=== PATIENT | female | born 1980 ===

== ENCOUNTER 2020-12-24 23:37 | Emergency (ER) | payer MEDICAID, OTHER ==
--- NOTE | 2020-12-24 23:46 | PCM.EKG ---
#1 Interpretation EKG Date: 12/24/20 Time: 23:39 Rhythm: NSR Rate (Beats/Min): 98 Butler: LAD-Left Butler Deviation P-Wave: Present QRS: Normal ST-T: Normal QT: Normal ME/PQ Interval: 152 Comparison: NA - No Prior EKG EKG Interpretation Comments: Sinus Rhythm
--- NOTE | 2020-12-25 00:43 | CR ---
INDICATION: Shortness of breath. Seven months . TECHNIQUE: Chest 1 view. COMPARISON: None. FINDINGS: There is a subtle opacity in the left lower lung which may be infectious or inflammatory. Mild right basilar atelectasis. No pleural effusion or pneumothorax. Normal heart size and pulmonary vascularity. The bones are unremarkable. IMPRESSION: Subtle opacity in the left lower lung may be infectious or inflammatory. Dictated by Michelle Taveras MD @ 12/25/2020 12:42:06 AM (Electronically Signed)
[2020-12-25 00:55] LABS: CORONAVIRUS COVID-19 NAA POSITIVE (NEGATIVE); INFLUENZA A NAA NEGATIVE (NEGATIVE); INFLUENZA B NAA NEGATIVE (NEGATIVE); RESPIRATORY SYNCYTIAL VIR NAA NEGATIVE (NEGATIVE)
--- NOTE | 2020-12-25 02:00 | EDM.PDOC ---
ED HPI GENERAL MEDICAL PROBLEM - General Chief Complaint: General Stated Complaint: DIFFICULTY BREATHING Time Seen by Provider: 12/24/20 23:50 - History of Present Illness INITIAL COMMENTS - FREE TEXT/NARRATIVE: *All conversations had with certified court interpreter CHIEF COMPLAINT(S): Cough HISTORY OF PRESENT ILLNESS: This is a 40-year-old woman who is approximately 7 months who comes to the emergency department with a chief complaint of cough. The patient states that for the last 4 days she has been experiencing shortness of breath and nonproductive cough. She states that she is starting to experience bilateral rib pain when she has any cough. She denies any fevers or chills but states that she does have some congestion and runny nose. She denies any recent travel, recent surgery, prior history of DVT or PE. She states that she is not vaccinated. She states that nobody else is having similar symptoms. She currently rates her pain as 7 out of 10 and sharp in her bilateral ribs. This is exacerbated by coughing and deep breathing. She has not yet tried anything for pain. There are no relieving factors. REVIEW OF SYSTEMS: Constitutional: Denies fever, chills. Eyes: Denies eye pain Ears, Nose, Mouth, & Throat: Denies earache Cardiovascular: Positive for posttussive bilateral chest pain. Respiratory: Positive for shortness of breath and nonproductive cough Gastrointestinal: Denies Nausea, vomiting, diarrhea, hematochezia. Genitourinary: Denies hematuria Skin:Denies a rash MSK: Denies joint pain Neurological: Denies blurred vision Psychiatric: Denies depression PAST MEDICAL HISTORY: As per history of present illness and as reviewed below otherwise noncontributory. SURGICAL HISTORY: As per history of present illness and as reviewed below otherwise noncontributory. SOCIAL HISTORY: As per history of present illness and as reviewed below otherwise noncontributory. FAMILY HISTORY: As per history of present illness and as reviewed below otherwise noncontributory. EXAMINATION OF ORGAN SYSTEMS/BODY AREAS: Constitutional: Blood pressure is 140/90, heart rate 100, respiratory rate 19 with an oxygen saturation of 99% on room air. Temperature 36.9 General: Young woman who does not appear to be in acute distress Psychiatric: Appropriate mood and affect. Eyes: No scleral icterus or conjunctival erythema ENMT: Moist mucous membranes. No pharyngeal erythema Cardiovascular: Regular, rate, and rhythm. No gallops, murmurs, or rubs. Bilateral upper extremity pulses symmetric and intact. No peripheral edema. No JVD. Respiratory: Lungs clear to auscultation bilaterally. No wheezes, rales, or rhonchi. Gastrointestinal: Soft, non-tender, non-distended. Normoactive bowel sounds Genitourinary: No suprapubic tenderness Musculoskeletal: Normal range of motion. Skin: No lesions or abrasions. Neurological: Alert, GCS 15 MEDICAL DECISION MAKING AND COURSE IN THE ED WITH INTERPRETATION/REVIEW OF DIAGNOSTIC STUDIES: This is a 40-year-old who is approximately 7 months who comes to the emergency department with cough, runny nose, congestion and posttussive chest pain. At this time we did obtain a screening EKG which was unremarkable. Obtain a chest x-ray and Covid and influenza and RSV swabs. The patient's vitals are currently normal. I do not believe any further work-up is indicated. Patient was amenable to this plan. DDx: COVID-19, influenza, pneumonia Laboratory: Covid is positive. Influenza and RSV negative. The radiological images were viewed by myself along with reading the report from the radiologist. Chest x-ray reveals a subtle opacity in the left lower lung which may be infectious or inflammatory. After lab and imaging I did discuss the results with the patient. At this time although there is evidence of an opacity left lower lung given the duration of the patient's symptoms I do believe this is secondary to COVID-19 pneumonia. I did discuss Regeneron and symptomatic treatment at home. Patient was amenable to discharge at this time and had no further questions. She was given strict return precautions and appropriate Azerbaijani discharge instructions were provided to the patient. DISPOSITION: The patient was discharged home in stable condition. The patient will follow up with primary care physician after isolation. CONDITION: Fair PROCEDURES: None FINAL IMPRESSION(S)/DIAGNOSES: 1. Acute COVID-19 pneumonia Matthew Ramirez M.D. ribs Pain Score (Numeric/FACES): 7 - Related Data Allergies Allergy/AdvReac Type Severity Reaction Status Date / Time No Known Allergies Allergy Verified 12/24/20 23:55 Home Meds: Home Meds . [No Known Home Meds] 12/24/20 [History] Past Medical History - Past Health History Medical/Surgical History: Denies Medical/Surgical History Social & Family History - Family History Family Medical History: No Pertinent Family History - Tobacco Use Tobacco Use Status *Q: Never Tobacco User - Recreational Drug Use Recreational Drug Use: No ED ROS GENERAL - Review of Systems Review Of Systems: See Below ED EXAM, GENERAL - Physical Exam Exam: See Below Course - Vital Signs Last Recorded V/S: Last Vital Signs Temp 36.9 C 12/24/20 23:48 Pulse 100 12/25/20 02:11 Resp 20 12/25/20 02:11 BP 128/75 12/25/20 02:11 Pulse Ox 99 12/25/20 02:11 - Orders/Labs/Meds Labs: Laboratory Tests 12/24/20 Range/Units 23:49 Influenza Type A RNA NEGATIVE (NEGATIVE) RSV RNA (INAAT) NEGATIVE (NEGATIVE) Influenza Type B RNA NEGATIVE (NEGATIVE) SARS-CoV-2 RNA (WANEDR) POSITIVE H (NEGATIVE) Departure - Departure Time of Disposition: 00:00 Disposition: Home, Self-Care 01 Condition: Fair Clinical Impression: COVID-19 - Discharge Information *PRESCRIPTION DRUG MONITORING PROGRAM REVIEWED*: No *COPY OF PRESCRIPTION DRUG MONITORING REPORT IN PATIENT LATOSHA: No Referrals: PCP,None [Primary Care Provider] - Forms: ED Department Discharge Additional Instructions: *Appropriate dominican discharge instructions were printed/scanned into chart and provided to the patient. You should take acetaminophen 500-1000 mg every 6 hours as needed for fever and muscle aches. Please drink plenty of fluids and get plenty of rest over the next several days. We would recommend that she get a pulse oximeter from the pharmacy to keep an eye on your oxygen level. If your oxygen level drops below 94%, you should return to the ED for evaluation. You should return to the ER sooner if you start having any symptoms of shortness of breath or any other new or concerning symptoms. 1. Your COVID-19 screening is positive. That means you do have the coronavirus and you are considered contagious. Your vital signs and oxygen saturation are well enough that you were able to monitor your symptoms at home. Continue to monitor for trouble breathing, new confusion or inability to arouse, bluish lips or face or any of the other symptoms we discussed -if this occurs please return to the emergency room. 2. Please self quarantine over the next 10 days. Inform any persons that you have been in contact with since you started becoming symptomatic that you have tested positive; they should be made aware and take the appropriate steps as needed. Patient quarantine for 14 days if they are not going to get tested. 3. The [facility] department will be calling you and following up with you. The [place] [facility] 19 Hotline phone number , They are open Tuesday - Tuesday 7am - 7pm. Follow up with your primary care provider for re-evaluation and re-testing after the 10 day quarantine and discuss when you should be seen. [facility] [address] [place] [address] [id number] [facility] [address] [place] [id number] Se informa al paciente de los resultados de robbins evaluacin y diagnstico y se responden todas las preguntas. Se les maciej instrucciones de izzy y precauciones de devolucin. El paciente est estable para el izzy. El paciente afirma que entiende y est de acuerdo con el plan y que volver si arben sntomas empeoran o si tiene alguna inquietud nueva. La siguiente informacin se sunita a los pacientes atendidos en el departamento de emergencias que estn siendo dados de izzy a robbins hogar. Esta informacin es para describir arben opciones para la atencin de seguimiento. Proporcionamos a todos los pacientes atendidos en nuestro departamento de emergencias myron derivacin de seguimiento. La necesidad de seguimiento, as cheryle el momento y las circunstancias, varan segn los detalles de robbins visita al departamento de emergencias. Si no tiene un mdico de atencin primaria en el personal, le proporcionaremos myron referencia. Siempre le recomendamos que se ponga en contacto con robbins mdico personal despus de myron visita al servicio de urgencias para informarle de las circunstancias de la visita y para realizar un seguimiento con l y / o la necesidad de cualquier derivacin a un especialista consultor. El departamento de emergencias tambin lo derivar a un especialista cuando sea apropiado. Esta remisin le asegura que tiene la oportunidad de recibir atencin de seguimiento con un especialista. Todas estas medidas se blanquita en un esfuerzo por brindarle myron atencin ptima, que incluye robbins seguimiento. En todas las circunstancias, siempre lo alentamos a que se comunique con robbins mdico privado, quien sigue siendo un recurso para coordinar robbins atencin. Cuando llame para recibir atencin de seguimiento, informe al consultorio que lucy seguimiento es de robbins visita reciente a la neris de emergencias. Si por alguna razn se le niega el seguimiento, comunquese con el Departamento de Emergencias del [facility] al y solicite hablar con la enfermera a cargo del departamento de emergencias. Sepsis Event Note (ED) - Evaluation Sepsis Screening Result: No Definite Risk
== END 2020-12-25 02:14 | disposition home or self-care (01) ==
LOC: MW.ED 23:37
DX: O98.513 Other viral diseases complicating pregnancy, third trimester (principal); U07.1 COVID-19; O99.513 Diseases of the respiratory system complicating pregnancy, third trimester; J12.82 Pneumonia due to coronavirus disease 2019
CPT/HCPCS: 0241U; 71045; 99285

== ENCOUNTER 2021-02-28 23:52 | Inpatient (IN) | payer OTHER ==
[2021-03-01] MEDS ORDERED: Water For Irrigation,Sterile 1,000 ML Container IRR PRN (00:36)
[2021-03-01] MEDS ORDERED: Terbutaline 1 MG/ML SDV SUBCUT PRN (00:36)
[2021-03-01] MEDS ORDERED: Sodium Chloride 0.9% 10 ML Syringe FLUSH PRN (00:36)
[2021-03-01] MEDS ORDERED: Butorphanol 1 MG/ML SDV IVPUSH PRN (00:36)
[2021-03-01] MEDS ORDERED: Nalbuphine 10 MG/1 ML Vial IVPUSH PRN (00:36)
[2021-03-01] MEDS ORDERED: Sodium Chloride 0.9% 2.5 ML Syringe FLUSH PRN (00:36)
[2021-03-01] MEDS ORDERED: Misoprostol 25 MCG (1/4 of 100 MCG) Tab VAG PRN ×2 (00:36)
[2021-03-01] MEDS ORDERED: Misoprostol 200 MCG Tab PO PRN (00:36)
[2021-03-01] MEDS ORDERED: Sodium Chloride 0.9% 20 ML SDV IV PRN (00:36)
[2021-03-01] MEDS ORDERED: Methylergonovine 0.2 MG/1 ML Amp IM PRN (00:36)
[2021-03-01] MEDS ORDERED: Lidocaine 1% 50 ML MDV INJECT PRN (00:36)
[2021-03-01] MEDS ORDERED: Carboprost Tromethamine 250 MCG/1 ML Amp IM PRN (00:36)
[2021-03-01] MEDS ORDERED: Tranexamic Acid 1,000 MG in Sodium Chloride 0.9% 100 ML IV PRN (00:36)
[2021-03-01] MEDS ORDERED: Oxytocin/0.9 % Sodium Chloride 30 UNIT/500 ML BAG IV SCH ×2 (00:45)
[2021-03-01] MEDS ORDERED: Misoprostol 25 MCG (1/4 of 100 MCG) Tab PO ONE (01:01)
[2021-03-01] MEDS: Lactated Ringers 1,000 ML IV SCH ×2 (08:12→16:15)
[2021-03-01] MEDS ORDERED: Ropivacaine HCl/PF 100 ML ONE (11:08)
[2021-03-01] MEDS ORDERED: ePHEDrine 50 MG/ML SDV IVPUSH PRN ×2 (11:16)
[2021-03-01] MEDS: Ropivacaine HCl/PF 200 MG in Premix Bag 1 BAG EPIDUR SCH (19:15)
[2021-03-01] MEDS: Acetaminophen 500 MG Tab PO PRN (20:00)
[2021-03-02] MEDS: Ropivacaine HCl/PF 200 MG in Premix Bag 1 BAG EPIDUR SCH (02:04)
[2021-03-02] MEDS: Acetaminophen 500 MG Tab PO PRN (03:00)
[2021-03-02] MEDS: Lactated Ringers 1,000 ML IV SCH (04:15)
[2021-03-02] MEDS ORDERED: Oxytocin 10 Units/1 ML SDV ONE ×2 (07:18→08:43)
[2021-03-02] MEDS ORDERED: fentaNYL 100 MCG/2 ML SDV ONE (07:19)
[2021-03-02] MEDS ORDERED: Morphine PF 10 MG/10 ML SDV ONE (07:20)
[2021-03-02] MEDS ORDERED: Ondansetron 4 MG/2 ML SDV ONE (07:21)
[2021-03-02] MEDS ORDERED: Ropivacaine 0.5% 5 MG/ML 30 ML SDV ONE (07:27)
[2021-03-02] MEDS ORDERED: ceFAZolin 1 GM Vial ONE ×2 (08:19)
[2021-03-02] MEDS ORDERED: Ondansetron 4 MG/2 ML SDV IVPUSH PRN ×3 (08:22→12:09)
[2021-03-02] MEDS ORDERED: Morphine 4 MG/ML VIAL IVPUSH PRN (08:22)
[2021-03-02] MEDS ORDERED: Acetaminophen/oxyCODONE 325-5 MG Tab PO PRN ×2 (08:22→12:09)
[2021-03-02] MEDS ORDERED: Naloxone 0.4 MG/ML SDV IVPUSH PRN (08:22)
[2021-03-02] MEDS ORDERED: Nalbuphine 10 MG/1 ML Vial IVPUSH PRN (08:22)
[2021-03-02] MEDS ORDERED: Metoclopramide 10 MG/2 ML SDV IVPUSH PRN (08:22)
[2021-03-02] MEDS ORDERED: diphenhydrAMINE 50 MG/ML SDV IVPUSH PRN ×2 (08:22→12:09)
[2021-03-02] MEDS ORDERED: fentaNYL 100 MCG/2 ML SDV IVPUSH PRN ×2 (08:22)
[2021-03-02] MEDS ORDERED: HYDROmorphone 1 MG/ML Syringe IVPUSH PRN (08:22)
[2021-03-02] MEDS ORDERED: Albuterol 0.083% 2.5 MG/3 ML Neb Soln NEB PRN (08:22)
[2021-03-02] MEDS ORDERED: Oxytocin 10 Units/1 ML SDV IM PRN (12:09)
[2021-03-02] MEDS ORDERED: Methylergonovine 0.2 MG/1 ML Amp IM PRN (12:09)
[2021-03-02] MEDS ORDERED: Lanolin 100% Cream 7 GM Tube TOP PRN (12:09)
[2021-03-02] MEDS ORDERED: Misoprostol 200 MCG Tab RECTAL PRN (12:09)
[2021-03-02] MEDS ORDERED: Tranexamic Acid 1,000 MG in Sodium Chloride 0.9% 100 ML IV PRN (12:09)
[2021-03-02] MEDS ORDERED: Bisacodyl 10 MG Supp RECTAL PRN (12:09)
[2021-03-02] MEDS ORDERED: Lactated Ringers 1,000 ML IV SCH (12:15)
[2021-03-02] MEDS ORDERED: Acetaminophen 1,000 MG in Premix Bag 1 BAG IV PRN (13:12)
[2021-03-02] MEDS ORDERED: Oxytocin/0.9 % Sodium Chloride 30 UNIT/500 ML BAG IV SCH (13:30)
[2021-03-02] MEDS: Ketorolac 30 MG/ML SDV IVPUSH SCH (19:38)
[2021-03-02] MEDS: Docusate Sodium 100 MG Cap PO SCH (21:08)
[2021-03-03] MEDS: Ketorolac 30 MG/ML SDV IVPUSH SCH ×3 (02:08→14:28)
[2021-03-03] MEDS: Docusate Sodium 100 MG Cap PO SCH ×2 (10:53→21:00)
[2021-03-03] MEDS: Ibuprofen 800 MG Tab PO PRN (21:00)
[2021-03-03] MEDS: Acetaminophen/oxyCODONE 325-5 MG Tab PO PRN (21:02)
[2021-03-04] MEDS: Acetaminophen/oxyCODONE 325-5 MG Tab PO PRN (04:48)
[2021-03-04] MEDS: Docusate Sodium 100 MG Cap PO SCH (08:10)
[2021-03-04] MEDS: Ibuprofen 800 MG Tab PO PRN (08:10)
== END 2021-03-04 12:27 | disposition home or self-care (01) | DRG 788 ==
LOC: MW.OBCHECK 23:52 → MW.OB 23:52 → MW.OBCHECK 03-01 00:36 → MW.OB 03-01 00:36 → OBSVTOIN 03-01 08:38 → MW.OB 03-02 11:53
PROVIDERS: ADMIT Obstetrics & Gynecology; ATTEND Obstetrics & Gynecology
PROC: 10D00Z1 Extraction of Products of Conception, Low, Open Approach (ICD-10-PCS; principal; 2021-03-01)
PROC: 3E0R3BZ Introduction of Anesthetic Agent into Spinal Canal, Percutaneous Approach (ICD-10-PCS; 2021-03-01)
PROC: 00HU33Z Insertion of Infusion Device into Spinal Canal, Percutaneous Approach (ICD-10-PCS; 2021-03-01)
DX: O62.0 Primary inadequate contractions (principal); Z37.0 Single live birth; Z3A.39 39 weeks gestation of pregnancy; O69.81X0 Labor and delivery complicated by cord around neck, without compression, not applicable or unspecified; O24.420 Gestational diabetes mellitus in childbirth, diet controlled
CPT/HCPCS: 01967; 01968; 36415; 51702; 59025; 64488; 81003; 82947; 85014; 85018; 85027; 86592; 86850; 86900; 86901; A9270-GY; J0131; J0595; J0690; J1790; J1885; J2270; J2370; J2405; J2590; J2795; J3010; J7120

== ENCOUNTER 2022-01-08 13:59 | Emergency (ER) | payer SELFPAY ==
[2022-01-08] MEDS ORDERED: Morphine 4 MG/ML Syringe IVPUSH ONE (14:20)
[2022-01-08] MEDS ORDERED: Sodium Chloride 0.9% 1,000 ML IV ONE (14:20)
[2022-01-08 14:55] LABS: CARBON DIOXIDE,CO2 24.3 mmol/L (21.0-32.0)
== END 2022-01-08 18:05 | disposition home or self-care (01) ==
LOC: MW.ED 13:59
DX: K52.9 Noninfective gastroenteritis and colitis, unspecified (principal)
CPT/HCPCS: 36415; 74176; 80053; 81001; 81025; 83690; 85025; 96361; 96374; 99284; J2270; J7030

== ENCOUNTER 2024-04-15 12:12 | Emergency (ER) | payer OTHER ==
[2024-04-15] MEDS ORDERED: Sodium Chloride 0.9% 10 ML Syringe FLUSH PRN (13:21)
[2024-04-15] MEDS ORDERED: Sodium Chloride 0.9% 2.5 ML Syringe FLUSH PRN (13:21)
[2024-04-15 14:21] LABS: BASOPHILS ABSOLUTE AUTO 0.04 K/uL (0.00-0.20); BASOPHILS PERCENT AUTO 0.5 % (0.0-1.0); EOSINOPHILS ABSOLUTE AUTO 0.09 K/uL (0.00-0.45); EOSINOPHILS PERCENT AUTO 1.1 % (0.0-6.0); HEMATOCRIT 42.6 % (37.0-47.0); HEMOGLOBIN 13.7 g/dL (12.0-16.0); IMMATURE GRAN ABSOLUTE AUTO 0.01 K/uL (0.00-0.05); IMMATURE GRAN PERCENT AUTO 0.1 % (0.0-0.4); LYMPHOCYTES ABSOLUTE AUTO 3.17 K/uL (1.00-4.80); LYMPHOCYTES PERCENT AUTO 38.5 % (24.0-44.0); MEAN CORPUSCULAR HEMOGLOBIN 26.2 pg (28.0-32.0); MEAN CORPUSCULAR HGB CONC 32.2 g/dL (32.0-36.0); MEAN CORPUSCULAR VOLUME 81.5 fL (83.0-99.0); MEAN PLATELET VOLUME 11.7 fL (9.4-12.3); MONOCYTES ABSOLUTE AUTO 0.55 K/uL (0.00-0.80); MONOCYTES PERCENT AUTO 6.7 % (0.0-8.0); NEUTROPHILS ABSOLUTE AUTO 4.38 K/uL (1.80-7.70); NEUTROPHILS PERCENT AUTO 53.1 % (41.0-71.0); PLATELET COUNT,PLT 205 K/uL (150-400); RED BLOOD CELL COUNT 5.23 M/uL (4.10-5.30); WHITE BLOOD CELL COUNT,WBC 8.24 K/uL (3.9-11.3)
[2024-04-15] MEDS: Ketorolac 30 MG/ML SDV IVPUSH ONE (14:23)
[2024-04-15] MEDS: Lidocaine 4% Patch TOP PRN (14:23)
[2024-04-15] MEDS: Sodium Chloride 0.9% 1,000 ML IV ONE (14:24)
[2024-04-15 14:41] LABS: A/G RATIO 1.1 (0.9-1.6); ALBUMIN 4.1 g/dL (3.4-5.0); BILIRUBIN TOTAL 0.3 mg/dL (0.2-1.0); CALCIUM 9.2 mg/dL (8.5-10.1); CARBON DIOXIDE,CO2 26.1 mmol/L (21.0-32.0); CREATININE 0.8 mg/dL (0.6-1.0); EST CRCL DRUG DOSING (CG) 67.72 mL/min; POTASSIUM,K 3.8 mmol/L (3.5-5.1); PROTEIN TOTAL,TP 7.9 g/dL (6.4-8.2)
[2024-04-15 15:23] LABS: APPEARANCE,URINE SLT CLOUDY; BILIRUBIN,URINE NEGATIVE (NEGATIVE); COLOR,URINE YELLOW; GLUCOSE,URINE NEGATIVE (NEGATIVE); KETONES,URINE NEGATIVE (NEGATIVE); LEUKOCYTE ESTERASE,URINE TRACE (NEGATIVE); NITRITE,URINE NEGATIVE (NEGATIVE); OCCULT BLOOD,URINE NEGATIVE (NEGATIVE); PH,URINE 5.5 (5.0-8.0); PROTEIN,URINE NEGATIVE (NEGATIVE); UROBILINOGEN,URINE 0.2 EU/dL (<2.0)
[2024-04-15 15:30] LABS: BACTERIA,URINE 1+ (NEGATIVE); EPITHELIAL CELLS,URINE MANY (NONE-FEW); RBC,URINE 0-2 (0-2/HPF); WBC,URINE 18-22 (0-5/HPF)
[2024-04-15] MEDS: Cyclobenzaprine 10 MG Tab PO ONE (17:18)
[2024-04-15] MEDS: Ibuprofen 600 MG Tab PO ONE (17:18)
== END 2024-04-15 17:20 | disposition home or self-care (01) ==
LOC: MW.ED 12:12
DX: M79.10 Myalgia, unspecified site (principal); Z90.49 Acquired absence of other specified parts of digestive tract; Z75.8 Other problems related to medical facilities and other health care
CPT/HCPCS: 36415; 70450; 72125; 80053; 81001; 81025; 83690; 83735; 85025; 87086; 96374; 99284; A9270; J1885; J7030